=== PATIENT | male | born 1985 | race Caucasian/White ===

== ENCOUNTER 2017-09-20 13:22 | Emergency (ER) | payer SELFPAY ==
[~2017-09-20] VITALS: Ht 167.6 cm; Wt 54.4 kg
[~2017-09-20 13:22] MED LIST: HYDR-757 PO; NAPR-243 PO; SULF-222 PO
--- OUTSIDE RECORDS SUMMARY | 2017-09-20 13:32 | XMS REPORT | Clinical Summary ---
Author Author [facility] Organization [facility] Address Unknown Phone Unavailable Care Team Providers Care Chicken Cleaner Name Role Phone Self, Referral PCP Unavailable Kiana Rinaldi RN Unavailable Unavailable Source Comments Some departments are not documenting in the electronic medical record. If you do not see the information that you expected, contact Release of Information in the Health Information Management department at [phone] for further assistance in locating additional records.[facility] Allergies No Known Allergies Current Medications Prescription Sig. Disp. Refills Start End Date Status Date clindamycin,+, (CLEOCIN) Take 1 Cap by mouth Four 40 0 11/19/19 Active 300 mg capsule Times Daily. 09 chlorhexidine gluconate Take 15 mL by mouth Twice 1 bottle 0 11/19/19 Active (PERIDEX) 0.12 % solution Daily. 09 hydrocodone-acetaminophen Take 1 Tab by mouth Every 30 0 11/19/19 Active (VICODIN ES) 7.5-750 mg 6 Hours as needed for 09 per tablet Pain. Active Problems Not on file Social History Tobacco Use Types Packs/Day Years Used Date Current Every Day Smoker Cigarettes 1 Alcohol Use Drinks/Week oz/Week Comments Yes occasionally Sex Assigned at Date Recorded Not on file Last Filed Vital Signs Vital Sign Reading Time Taken Blood Pressure 117/68 11/18/2008 7:39 PM CDT Pulse 78 11/18/2008 5:06 PM CDT Temperature 36.7 C (98.1 F) 11/18/2008 5:06 PM CDT Respiratory Rate - - Oxygen Saturation 97% 11/18/2008 7:39 PM CDT Inhaled Oxygen - - Concentration Weight - - Height - - Body Mass Index - - Plan of Treatment Health Maintenance Due Date Last Done Comments PHYSICAL (COMPREHENSIVE) 1990 EXAM PERTUSSIS VACCINE 1994 HIV SCREENING 1998 TETANUS VACCINE 2000 INFLUENZA VACCINE 03/28/2018 Results Not on filefrom Last 3 Months
--- OUTSIDE RECORDS SUMMARY | 2017-09-20 13:32 | XMS REPORT ---
Author Author COLEMAN BARRAZA [facility] eClinicalWorks Address Unknown Phone Unavailable Care Team Providers Care Veterinary Milk Specialist Name Role Phone COLEMAN BARRAZA CP Unavailable Allergies, Adverse Reactions, Alerts Substance Reaction Event Type N.K.D.A. Info Not Available Non Drug Allergy Problems Problem Type Condition Code Onset Dates Condition Status Assessment Dental caries K02.9 Active Assessment Dental examination Z01.20 Active Medications Medication Code System Code Instructions Start Date End Date Status Dosage Winston [facility] [address]-92 5-325 MG Orally every 6 hrs Apr 03, 2015 Apr 07, 2015 1 tablet as needed Amoxicillin ER [facility] [address]-81 not defined Procedures Procedure Coding System Code Date INTRAORL-PERIAPICAL 1 FILM 50843 CPT-4 D0220 Apr 03, 2015 BITEWING - SINGLE FILM CPT-4 D0270 Apr 03, 2015 LTD ORAL EVALUATION - PROBLEM FOCUS CPT-4 D0140 Apr 03, 2015 EXTRAC ERUPTED TOOTH/EXPOSED ROOT CPT-4 D7140 Apr 03, 2015 Vital Signs Date/Time: Apr 03, 2015 Blood Pressure Diastolic 64 mmHg Blood Pressure Systolic 97 mmHg Results No Known Results Summary Purpose eClinicalWorks Submission
[2017-09-20] MEDS ORDERED: LIDOCAINE/EPI 2% 1:100,00 (XYLOCAINE) 20 ML VIAL ONE (14:07)
--- NOTE | 2017-09-20 14:08 | ED EENT ---
History of Present Illness General Chief Complaint: Dental Problems/Pain Stated Complaint: FACIAL SWELLING Nursing Triage Note: PT REPORTS HE BROKE A TOOTH ON A CARROT ET FACE BEGAN SWELLING AFTER. DENIES SEEING PCP FOR C/O. STATES HAPPENED A COUPLE OF WEEKS AGO Source: patient Exam Limitations: no limitations History of Present Illness Date Seen by Provider: Sep 20, 2017 Time Seen by Provider: 14:05 Initial Comments To ER with reports of facial swelling. Patient states that he broke off one of his right lower teeth 2-3 days ago after eating a carrot. He then awakened last night with chills fevers and facial swelling. Most of his facial swelling is to the upper lip just below the nose. Timing/Duration: this morning Severity: moderate Associated Symptoms: facial pain/swelling, fever, tooth pain Allergies and Home Medications Allergies Coded Allergies: No Known Drug Allergies (Unverified , 10/02/14) Home Medications Penicillin V Potassium 500 Mg Tablet, 500 MG PO TID Prescribed by: HECTOR NOBLES on 09/20/17 5822 Patient Home Medication List Home Medication List Reviewed: Yes Review of Systems Constitutional: see HPI Eyes: No Symptoms Reported Ears: No Symptoms Reported Nose: no symptoms reported Mouth: see HPI Throat: no symptoms reported Respiratory: no symptoms reported Cardiovascular: no symptoms reported Musculoskeletal: no symptoms reported Skin: no symptoms reported Neurological: No Symptoms Reported Hematologic/Lymphatic: No Symptoms Reported Immunological/Allergic: no symptoms reported Past Sjgevvs-Jclori-Jypiqj Hx Patient Social History Alcohol Use: Denies Use Recreational Drug Use: No Smoking Status: Current Everyday Smoker Recent Foreign Travel: No Contact w/Someone Who Travel: No Recent Infectious Disease Expo: No Recent Hopitalizations: No Immunizations Up To Date Tetanus Booster (TDap): Unknown Surgeries History of Sur[facility]: Yes [facility] Respiratory History of Respiratory Disorde: No Cardiovascular History of Cardiac Disorders: No Neurological History of Neurological Disord: No Reproductive System Hx Reproductive Disorders: No Sexually Transmitted Disease: No HIV/AIDS: No Gastrointestinal History of Gastrointestinal Di: No Musculoskeletal History of Musculoskeletal Dis: No Endocrine History of Endocrine Disorders: No Cancer History of Cancer: No Psychosocial History of Psychiatric Problem: No Integumentary History of Skin or Integumenta: No Blood Transfusions History of Blood Disorders: No Adverse Reaction to a Blood Tr: No Physical Exam Vital Signs Vital Signs - First Documented 09/20/17 13:46 Temp 96.7 Pulse 107 Resp 20 B/P (MAP) 83/65 (71) Pulse Ox 97 O2 Delivery Room Air General Appearance: WD/WN, no apparent distress, other (there is a red scaly flat rash over most of his face which looks like seborrheic dermatitis type rash ; he states this rash is been present since age 14.) Eyes: bilateral eye normal inspection, bilateral eye PERRL, bilateral eye EOMI Ears: bilateral ear auricle normal, bilateral ear canal normal, bilateral ear TM normal Mouth/Throat: maxillary swelling (just below the nose, superior to teeth #8 and 9 there is fluctuant swelling. There is diffuse gingivitis, carious, fractured and eroded teeth.) Neck: non-tender, full range of motion Respiratory: no respiratory distress, no accessory muscle use Gastrointestinal: normal bowel sounds, non tender Neurologic/Psychiatric: alert, normal mood/affect, oriented x 3 Skin: normal color, warm/dry I&D : Blade Size: 11 Progress Superior or nerve block superior to tooth #8 and 9 was done using 1 mL of 2% lidocaine with epinephrine. Stab incision made with 11 blade scalpel. Moderate amount of purulent material expressed. Progress/Results/Core Measures Results/Orders Lab Results Laboratory Tests Test 09/20/17 13:55 Range/Units White Blood Count 12.6 H 4.3-11.0 10^3/uL Red Blood Count 5.26 4.35-5.85 10^6/uL Hemoglobin 15.9 13.3-17.7 G/DL Hematocrit 45 40-54 % Mean Corpuscular Volume 86 80-99 FL Mean Corpuscular Hemoglobin 30 25-34 PG Mean Corpuscular Hemoglobin Concent 35 32-36 G/DL Red Cell Distribution Width 12.6 10.0-14.5 % Platelet Count 249 130-400 10^3/uL Mean Platelet Volume 8.6 7.4-10.4 FL Neutrophils (%) (Auto) 75 42-75 % Lymphocytes (%) (Auto) 9 L 12-44 % Monocytes (%) (Auto) 15 H 0-12 % Eosinophils (%) (Auto) 1 0-10 % Basophils (%) (Auto) 0 0-10 % Neutrophils # (Auto) 9.5 H 1.8-7.8 X 10^3 Lymphocytes # (Auto) 1.2 1.0-4.0 X 10^3 Monocytes # (Auto) 1.9 H 0.0-1.0 X 10^3 Eosinophils # (Auto) 0.1 0.0-0.3 10^3/uL Basophils # (Auto) 0.0 0.0-0.1 10^3/uL Sodium Level 136 135-145 MMOL/L Potassium Level 4.3 3.6-5.0 MMOL/L Chloride Level 101 98-107 MMOL/L Carbon Dioxide Level 28 21-32 MMOL/L Anion Gap 7 5-14 MMOL/L Blood Urea Nitrogen 7 7-18 MG/DL Creatinine 0.92 0.60-1.30 MG/DL Estimat Glomerular Filtration Rate > 60 BUN/Creatinine Ratio 8 Glucose Level 104 70-105 MG/DL Lactic Acid Level 0.89 0.50-2.00 MMOL/L Calcium Level 9.5 8.5-10.1 MG/DL Total Bilirubin 1.5 H 0.1-1.0 MG/DL Aspartate Amino Transf (AST/SGOT) 16 5-34 U/L Alanine Aminotransferase (ALT/SGPT) 13 0-55 U/L Alkaline Phosphatase 71 40-136 U/L Total Protein 6.5 6.4-8.2 GM/DL Albumin 3.9 3.2-4.5 GM/DL My Orders Orders - HECTOR NOBLES APRN Comprehensive Metabolic Panel (09/20/17 14:03) Blood Culture (09/20/17 14:03) Lactic Acid Analyzer (09/20/17 14:03) Cbc With Automated Diff (09/20/17 14:03) Ct Maxillofacial W (09/20/17 14:03) Saline Lock/Iv-Start (09/20/17 14:03) Ns Iv 1000 Ml (Sodium Chloride 0.9%) (09/20/17 14:15) Lidocaine/Epi 1% 1:100,000 (Xylocaine /E (09/20/17 14:15) Lidocaine/Epi 2% 1:100,000 (Xylocaine/Ep (09/20/17 14:15) Lidocaine/Epi 2% 1:100,000 (Xylocaine/Ep (09/20/17 14:07) Iohexol Injection (Omnipaque 350 Mg/Ml 1 (09/20/17 14:15) Ns (Ivpb) (Sodium Chloride 0.9% Ivpb Bag (09/20/17 14:15) Clindamycin 900 Mg/50 Ml Ivpb (Cleocin P (09/20/17 15:45) Saline Lock/Iv-Start (09/20/17 16:18) Ns Iv 1000 Ml (Sodium Chloride 0.9%) (09/20/17 16:18) Medications Given in ED Current Medications Medications Dose Ordered Sig/Syed Route Start Time Stop Time Status Last Admin Dose Admin Clindamycin Phosphate/Dextrose 50 ml @ 100 mls/hr ONCE ONCE IV 09/20/17 15:45 09/20/17 16:14 DC 09/20/17 15:51 100 MLS/HR Iohexol 100 ml ONCE ONCE IV 09/20/17 14:15 09/20/17 14:17 DC 09/20/17 15:09 100 ML Lidocaine/ Epinephrine 2 ml ONCE ONCE INJ 09/20/17 14:15 09/20/17 14:16 DC 09/20/17 14:15 2 ML Sodium Chloride 100 ml ONCE ONCE IV 09/20/17 14:15 09/20/17 14:17 DC 09/20/17 15:09 80 ML Vital Signs/I&O Vital Sign - Last 12Hours 09/20/17 09/20/17 09/20/17 13:46 14:15 17:03 Temp 96.7 96.7 97.0 Pulse 107 99 Resp 20 20 B/P (MAP) 83/65 (71) 107/85 (71) Pulse Ox 97 97 O2 Delivery Room Air Room Air Blood Pressure Mean: 71 Diagnostic Imaging Diagonstic Imaging: CT Comments NAME: SUSAN COREAS [facility] REC#: [id number] PT STATUS: REG ER : 1985 PHYSICIAN: HECTOR NOBLES BRAND COORDINATOR ADMIT DATE: 09/20/17/ER Draft Date of Exam:09/20/17 CT MAXILLOFACIAL W PROCEDURE: CT maxillofacial with contrast. TECHNIQUE: After intravenous administration of contrast, axial images were obtained through the face and reformatted into coronal and sagittal planes. INDICATION: Facial swelling. Patient reportedly underwent a dental procedure with abscess removal in the region of the maxillary central incisors. FINDINGS: There are prominent periapical lucencies involving both right and left central incisors of the maxillary teeth. Findings are suggestive of periapical abscess. There is some small amount of gas identified in the soft tissues of midline immediately anterior to the central incisors within the gums. There appears to be packing material anterior to the maxillary teeth. There is a prominent dental carry involving the right central incisor. Multiple additional prominent dental caries are present as well. No fractures are identified. There is mucosal thickening of the left maxillary sinus. No well-formed fluid collection is seen. There is some moderate amount of edema in the soft tissues of the face which may represent facial cellulitis. This appears to be fairly diffuse. IMPRESSION: Periapical lucencies involving the central incisors of the maxillary teeth suggestive of periapical abscess. There is a small amount of soft tissue gas immediately anterior to this level, which may be postsurgical. Packing material is present. There is generalized soft tissue edema and swelling consistent with facial cellulitis. No discrete fluid collection or abscess is identified. Dictated on workstation # [id number] Dict: 09/20/17 1523 Trans: 09/20/17 1535 [facility] [id number] Interpreted by: LINDA MAE MD Electronically signed by: Please note the packing material radiology is referring to is a rolled up 4 x 4 under the top lip to help with hemostasis after incision and drainage Departure Impression Impression: Primary Impression: Dental abscess Disposition: 01 HOME, SELF-CARE Condition: Improved Departure-Patient Inst. Decision time for Depature: 15:37 Referrals: NO,LOCAL PHYSICIAN (PCP/Family) Primary Care Physician Patient Instructions: Tooth Abscess (DC) Add. Discharge Instructions: 1. Antibiotics as directed 2. Return to ER for fever worsening symptoms or other concerns. 3. Follow-up with your regular doctor or your dentist this week. If you do not have a dentist go to [facility] on and [address] to schedule an appointment today. All discharge instructions reviewed with patient and/or family. Voiced understanding. Scripts Penicillin V Potassium (Penicillin V Potassium) 500 Mg Tablet 500 MG PO TID, #30 TAB Prov: HECTOR NOBLES APRN 09/20/17 HECTOR NOBLES APRN Sep 20, 2017 14:08
[2017-09-20 14:13] LABS: BASOPHILS % (AUTO) 0 % (0-10); EOSINOPHILS # (AUTO) 0.1 10^3/uL (0.0-0.3); EOSINOPHILS % (AUTO) 1 % (0-10); HEMATOCRIT 45 % (40-54); HEMOGLOBIN 15.9 G/DL (13.3-17.7); LYMPHOCYTES # (AUTO) 1.2 X 10^3 (1.0-4.0); LYMPHOCYTES % (AUTO) 9 % (12-44); MEAN CORPUSCULAR HEMOGLOBIN 30 PG (25-34); MEAN CORPUSCULAR HGB CONC 35 G/DL (32-36); MEAN CORPUSCULAR VOLUME 86 FL (80-99); MEAN PLATELET VOLUME 8.6 FL (7.4-10.4); MONOCYTES # (AUTO) 1.9 X 10^3 (0.0-1.0); MONOCYTES % (AUTO) 15 % (0-12); NEUTROPHILS # (AUTO) 9.5 X 10^3 (1.8-7.8); NEUTROPHILS % (AUTO) 75 % (42-75); PLATELET COUNT 249 10^3/uL (130-400); RED BLOOD COUNT 5.26 10^6/uL (4.35-5.85); RED CELL DISTRIBUTION WIDTH 12.6 % (10.0-14.5); WHITE BLOOD COUNT 12.6 10^3/uL (4.3-11.0)
[2017-09-20] MEDS ORDERED: LIDOCAINE/EPI 1%-1:100,000 (XYLOCAINE) 20ML INJ ONE (14:15)
[2017-09-20] MEDS ORDERED: IOHEXOL 350 MG/ML 100 ML (OMNIPAQUE 350) VIAL IV ONE (14:15)
[2017-09-20] MEDS ORDERED: NS 100 ML (IVPB) BAG IV ONE (14:15)
[2017-09-20] MEDS ORDERED: NS IV 1000 ML 1,000 ML IV SCH ×2 (14:15→16:18)
[2017-09-20] MEDS ORDERED: LIDOCAINE/EPI 2% 1:100,00 (XYLOCAINE) 20 ML VIAL INJ ONE (14:15)
[2017-09-20 14:31] LABS: ALANINE AMINOTRANSFERASE 13 U/L (0-55); ALBUMIN 3.9 GM/DL (3.2-4.5); ALKALINE PHOSPHATASE 71 U/L (40-136); BILIRUBIN,TOTAL 1.5 MG/DL (0.1-1.0); BUN/CREATININE RATIO 8; CALCIUM 9.5 MG/DL (8.5-10.1); CARBON DIOXIDE 28 MMOL/L (21-32); CHLORIDE 101 MMOL/L (98-107); CREATININE SERUM 0.92 MG/DL (0.60-1.30); GFR ESTIMATED > 60; GLUCOSE 104 MG/DL (70-105); POTASSIUM 4.3 MMOL/L (3.6-5.0); SODIUM 136 MMOL/L (135-145); TOTAL PROTEIN 6.5 GM/DL (6.4-8.2)
--- NOTE | 2017-09-20 15:35 | Diagnostic Imaging Report ---
PROCEDURE: CT maxillofacial with contrast. TECHNIQUE: After intravenous administration of contrast, axial images were obtained through the face and reformatted into coronal and sagittal planes. INDICATION: Facial swelling. Patient reportedly underwent a dental procedure with abscess removal in the region of the maxillary central incisors. FINDINGS: There are prominent periapical lucencies involving both right and left central incisors of the maxillary teeth. Findings are suggestive of periapical abscess. There is some small amount of gas identified in the soft tissues of midline immediately anterior to the central incisors within the gums. There appears to be packing material anterior to the maxillary teeth. There is a prominent dental carry involving the right central incisor. Multiple additional prominent dental caries are present as well. No fractures are identified. There is mucosal thickening of the left maxillary sinus. No well-formed fluid collection is seen. There is some moderate amount of edema in the soft tissues of the face which may represent facial cellulitis. This appears to be fairly diffuse. IMPRESSION: Periapical lucencies involving the central incisors of the maxillary teeth suggestive of periapical abscess. There is a small amount of soft tissue gas immediately anterior to this level, which may be postsurgical. Packing material is present. There is generalized soft tissue edema and swelling consistent with facial cellulitis. No discrete fluid collection or abscess is identified. Dictated by: Dictated on workstation # [id number]
[2017-09-20] MEDS ORDERED: PENI500T PO (15:43)
[2017-09-20] MEDS ORDERED: CLINDAMYCIN 900 MG/50 ML IVPB 50 ML IV ONE (15:45)
[2017-09-20 17:03] VITALS: BP 107/85
== END 2017-09-20 17:03 | disposition home or self-care (01) ==
LOC: EDUNIT# 13:22 → ER 13:24
DX: K04.7 Periapical abscess without sinus (principal); F17.200 Nicotine dependence, unspecified, uncomplicated
CPT/HCPCS: 36415; 70487; 80053; 83605; 85025; 87040; 96361; 96365